=== PATIENT | female | born 1955 | race Caucasian/White ===

== ENCOUNTER 2017-12-12 13:41 | Outpatient (CLI) | payer OTHER | END 2017-12-12 17:00 | disposition home or self-care (01) | LOC: RAD 13:41 | DX: R05 Cough (principal) ==

== ENCOUNTER 2018-01-16 10:03 | Outpatient (CLI) | payer OTHER | END 2018-01-16 10:14 | disposition home or self-care (01) | LOC: MAMO-SONO 10:03 | DX: Z12.31 Encounter for screening mammogram for malignant neoplasm of breast (principal); N60.11 Diffuse cystic mastopathy of right breast; N60.12 Diffuse cystic mastopathy of left breast ==

== ENCOUNTER 2019-02-16 11:40 | Outpatient (CLI) | payer OTHER | END 2019-02-16 11:53 | disposition home or self-care (01) | LOC: MAMO-SONO 11:40 | DX: Z12.31 Encounter for screening mammogram for malignant neoplasm of breast (principal); Z87.898 Personal history of other specified conditions; N60.11 Diffuse cystic mastopathy of right breast; N60.12 Diffuse cystic mastopathy of left breast ==